=== PATIENT | male | born 1990 | race African-American/Black ===

== ENCOUNTER 2018-12-24 11:40 | Emergency (ER) | payer MEDICAID ==
[~2018-12-24] VITALS: Ht 177.8 cm; Wt 93.0 kg
[2018-12-24 12:04] VITALS: BP 118/92
== END 2018-12-24 12:52 | disposition home or self-care (01) ==
LOC: ER 11:52
DX: J30.9 Allergic rhinitis, unspecified (principal); R03.0 Elevated blood-pressure reading, without diagnosis of hypertension; F12.90 Cannabis use, unspecified, uncomplicated
CPT/HCPCS: 99282